=== PATIENT | male | born 1935 | race Caucasian/White ===

== ENCOUNTER 2019-02-28 12:28 | Emergency (ER) | payer MEDICARE, OTHER ==
[~2019-02-28 12:28] MED LIST: CHILDREN'S ASPI81 MG PO; COREG12.5 MG PO; FLOMAX0.4 MG PO; GLIMEPIRIDE2 MG PO; LIPITOR40 MG PO; NEXIUM40 MG PO; PLAVIX75 MG PO; SYNTHROID75 MCG PO; ZOLOFT100 MG PO
[2019-02-28 12:29] VITALS: BP 174/85; Ht 180.3 cm
[2019-02-28] MEDS ORDERED: ASPIRIN81 MG (12:34)
[2019-02-28] MEDS ORDERED: CHLORTHALIDONE50 MG PO (12:35)
[2019-02-28] MEDS ORDERED: PLAVIX75 MG PO (12:35)
[2019-02-28] MEDS ORDERED: DONEPEZIL HCL10 MG PO (12:36)
[2019-02-28] MEDS ORDERED: FERROUS SULFAT325 MG PO (12:36)
[2019-02-28] MEDS ORDERED: BENTYL10 MG PO (12:36)
[2019-02-28] MEDS ORDERED: FLOVENT DISKU250 MCG INH (12:37)
[2019-02-28] MEDS ORDERED: GLIMEPIRIDE4 MG PO ×2 (12:37)
[2019-02-28] MEDS ORDERED: COMBIVENT RESPIM4 GM (12:37)
[2019-02-28] MEDS ORDERED: GAS-X125 M1 PO (12:38)
[2019-02-28] MEDS ORDERED: NAMENDA10 MG PO (12:38)
[2019-02-28] MEDS ORDERED: JANUVIA50 MG PO (12:39)
[2019-02-28 13:30] LABS: BASOPHILS 0.3 % (0-2); EOSINOPHILS 2.3 % (0-7); HEMATOCRIT 33.8 % (42.0-54.0); HEMOGLOBIN 10.9 g/dL (13.5-17.5); IMMATURE GRANULOCYTES 0.9 % (0-5); MCHC 32.2 g/dL (31.0-37.0); MCV 99.1 fL (80.0-100.0); MEAN PLATELET VOLUME 9.6 fL (7.4-10.4); MONOCYTES 5.8 % (2-11); NEUTROPHILS 73.7 % (40-80); PLATELET COUNT 179 10x3/uL (130-400); RBC 3.41 10x6/uL (4.20-6.10); RDW 14.6 % (11.5-14.5); WBC 11.6 10x3/uL (4.8-10.8)
[2019-02-28 13:40] LABS: ALBUMIN 3.1 g/dL (3.4-5.0); ALKALINE PHOSPHATASE 94 U/L (46-116); ALT (SGPT) 32 U/L (10-68); BILIRUBIN - TOTAL 0.61 mg/dL (0.2-1.3); CALC OSMOLALITY 290 mosm/kg (275-300); CALCIUM 9.3 mg/dL (8.5-10.1); CARBON DIOXIDE 32.8 mmol/L (21.0-32.0); CHLORIDE - SERUM 103 mmol/L (98-107); CREATININE - SERUM 1.7 mg/dL (0.6-1.3); GLUCOSE 138 mg/dL (74-106); POTASSIUM - SERUM 3.1 mmol/L (3.5-5.1); PROTEIN - SERUM 7.5 g/dL (6.4-8.2); SODIUM 140 mmol/L (136-145); UREA NITROGEN 40 mg/dL (7-18); eGFR NON AFRICAN AMERICAN 41 mL/min (90-120)
[2019-02-28 13:48] LABS: MAGNESIUM - SERUM 1.7 mg/dL (1.8-2.4); PRO BNP 928 pg/mL (0-450); THYROID STIMULATING HORMONE 2.71 uIU/mL (0.36-3.74); TROPONIN-I < 0.017 ng/mL (0.000-0.060)
--- NOTE | 2019-02-28 14:01 | MORECARE ---
CASE MANAGEMENT DISCHARGE SUMMARY PATIENT: FABIÁN JAMES UNIT: [id number] ADM DATE: AGE: 83 : 35 SEX: M ROOM/BED: AUTHOR: YONAS MAHAJAN PHYSICIAN: REFERRING PHYSICIAN: KEISHA BUCKLEY MD DATE OF SERVICE: 02/28/19 Discharge Plan Patient Name: FABIÁN JAMES Facility: [facility]:[place] : 1935 Planned Disposition: Home or Self Care Anticipated Discharge Date: Discharge Date: Expected LOS: 0 Initial Reviewer: [email or web address] Initial Review Date: 02/28/2019 Generated: 02/28/19 3:00 pm Patient Name: FABIÁN JAMES Page [id number] at 1401 All edits/amendments must be made on the electronic document DICTATION DATE: 02/28/19 1400 SCALE BALANCER: FILIBERTO 02/28/19 1400 RPT#: [id number] DC DATE: STATUS: REG ER [facility] [address] [place] [address] END OF REPORT
--- NOTE | 2019-02-28 15:06 | MORECARE ---
CASE MANAGEMENT DISCHARGE SUMMARY PATIENT: FABIÁN MANNING UNIT: [id number] ADM DATE: AGE: 83 : 35 SEX: M ROOM/BED: AUTHOR: KEYSHAWN,DOC PHYSICIAN: REFERRING PHYSICIAN: KEISHA BUCKLEY MD DATE OF SERVICE: 02/28/19 Discharge Plan Patient Name: FABIÁN MANNING Facility: [facility]:[place] : 1935 Planned Disposition: Home or Self Care Anticipated Discharge Date: Discharge Date: Expected LOS: 0 Initial Reviewer: [email or web address] Initial Review Date: 02/28/2019 Generated: 02/28/19 4:06 pm Comments DCP- Discharge Planning Updated by [email or web address]: Yu Sapp on 02/28/19 1:[address] CM met with patient, per MD request. Patient states he lives in an apartment, alone. States his , Jeanette Manning, #[phone], lives in a separate apartment, a few doors from him. Patient is alert, oriented and states he is upset due to " refused to let his hospital nursing assistant come into his apartment for his care." States "I waited on them to come, and pooped my pants and had to lay in it all night long. I was not made aware that they were not coming." Patient states he is able to ambulate with his hospital nursing assistant by his side. States his has POA. States his along with the police showed up at his apartment and he was sent to the hospital for unknown reasons. When questioned patient about going into rehab for physical therapy/OT, patient states he was already doing that at his home and would prefer to return there as his caregivers are in [place]. This was reported to ER MD. Patient's spouse at nurses desk, states she doses not have the money to pay a private caregiver (approx. $7,000 for the next 2 weeks). Spouse states she has called Dr. Johnston's office ([facility]), was told what to bring for paperwork and patient would be admitted to [facility]. States she has the money to private pay for a nursing facility, but the patient the has refused to go. Patient has been a client of [facility] in the past. Spouse states Rosanne Baires DC, [facility] would be her preference. Son, Seth Manning #[phone], is on his way here. Spouse states she cannot take patient home. She states she contacted [facility] last evening and was informed to call the police, which she did this morning. CM made spouse aware that a premium representative from [facility] will evaluate patient to see if patient meets requirements for admit. Also made her aware that the [facility] premium representative will speak with her. ER nurse Geraldine has contacted [facility] for evaluation. Family is in waiting awaiting decision. Yu Sapp RN, CM Last DP export: 02/28/19 1:00 p Patient Name: FABIÁN MANNING Page [phone] at 1506 All edits/amendments must be made on the electronic document DICTATION DATE: 02/28/19 150 OFFICE SUPPORT: FILIBERTO 02/28/19 1506 RPT#: [id number] DC DATE: STATUS: REG [facility] [address] [place] [address] END OF REPORT
[2019-02-28 16:27] LABS: APPEARANCE CLEAR (CLEAR); BILIRUBIN NEGATIVE (NEGATIVE); COLOR YELLOW (YELLOW); GLUCOSE NEGATIVE (NEGATIVE); KETONE NEGATIVE (NEGATIVE); NITRITE NEGATIVE (NEGATIVE); PROTEIN NEGATIVE (NEGATIVE); SPECIFIC GRAVITY 1.015 (1.005-1.020); UROBILINOGEN NORMAL (NORMAL)
[2019-02-28 16:31] LABS: UDS - AMPHET NEGATIVE QUAL (NEGATIVE); UDS - BARB NEGATIVE QUAL (NEGATIVE); UDS - BENZO NEGATIVE QUAL (NEGATIVE); UDS - COCAINE NEGATIVE QUAL (NEGATIVE); UDS - OPIATE NEGATIVE QUAL (NEGATIVE); UDS - PCP NEGATIVE QUAL (NEGATIVE); UDS - THC NEGATIVE QUAL (NEGATIVE)
[2019-02-28] MEDS ORDERED: PROTONIX20 MG (17:00)
== END 2019-02-28 16:40 ==
LOC: D.ER 12:28
PROVIDERS: Family Medicine
DX: M25.552 Pain in left hip (principal); R45.1 Restlessness and agitation; R53.1 Weakness; E87.6 Hypokalemia; N28.9 Disorder of kidney and ureter, unspecified

== ENCOUNTER 2019-02-28 16:07 | Inpatient (IN) | payer MEDICARE, OTHER ==
[~2019-02-28] VITALS: Ht 175.3 cm; Wt 93.9 kg
--- NOTE | ~2019-02-28 | DS ---
PATIENT:FABIÁN JAMES :35 MEDICAL RECORD: [id number] DISCHARGE SUMMARY ADMISSION DATE: 02/28/19 DISCHARGE DATE: 03/08/19 IDENTIFYING DATA: The patient is 83 years old and he was admitted to the hospital on a voluntary basis. The patient apparently has a history of alcoholism and had fallen a few days ago. He was found in the floor surrounded by urine and feces. There are also empty wine bottles around him. He was quite disheveled and the home was disheveled. He was brought to the Emergency Room where he was very angry. He has a known and established diagnosis of dementia. He believes that his and son are plotting against him to get his house away from him, even though there is no evidence of this. He apparently used to be a very heavy drinker, even though it did not really interfere with his social or occupational functioning, but now he says he just drinks very casually perhaps a glass or two of wine with a meal. He apparently broke his hip recently, I suspect that was probably also at least in part related to his alcohol use. HOSPITAL COURSE: The patient was admitted to the hospital and fully evaluated from both a medical, psychological, and social standpoint. He was given routine prophylaxis for alcohol withdrawal but did not show any. He was initially quite angry and disruptive. He showed improvement in his cognition and mood state through the course of the hospitalization as he was treated with both mood-stabilizing and memory-enhancing medications. He was subsequently transitioned to a [facility] for rehabilitative services. He was accepting of this and did not represent a direct risk to others. DISCHARGE DIAGNOSES: AXIS I: 1. Senile dementia of the Alzheimer's type with behavioral disturbances. 2. Alcohol abuse. AXIS II: None. AXIS III: Hypertension, hyperlipidemia, diabetes, cardiac arrhythmia, gastroesophageal reflux disease. AXIS IV: Moderate. AXIS V: Global Assessment Of Functioning is 45. PLAN: At the time of discharge, the patient was in good behavioral control. He still had cognitive improvement but had improved. He will have rehabilitative services and as to his long-term placement that is yet to be determined, which is the least restrictive. I think that his prognosis will be dramatically improved if he abstains from alcohol use. He says he intends to do so, but I think he has pretty limited insight about his use of alcohol. Followup will be with his primary care physician. TRANSINT:[id number] Voice Confirmation ID: [id number] DOCUMENT ID: [id number] KRUNAL ROQUE MD CC: [id number] DICTATION DATE: 03/09/191519 GUT SORTER: 03/10/19 0551 DIS IN 03/08/19 [facility] [address] [place] [address]
[~2019-02-28 16:07] MED LIST changes: +ASPIRIN81 MG; +BENTYL10 MG PO; +CHLORTHALIDONE50 MG PO; +COMBIVENT RESPIM4 GM; +DONEPEZIL HCL10 MG PO; +FERROUS SULFAT325 MG PO; +FLOVENT DISKU250 MCG INH; +GAS-X125 M1 PO; +GLIMEPIRIDE4 MG PO; +JANUVIA50 MG PO; +NAMENDA10 MG PO
--- NOTE | 2019-02-28 16:45 | NUR ---
PT ADMITTED TO SENIOR FOR AGGRESSION WITH FAMILY AND INCREASED CONFUSION. PT IS VERY ANXIOUS ON ADMIT. STATING HE WANTS TO GO HOME "YALL ARE HOLDING ME AGAINST MY WILL, I GOING TO AMA MY , SON AND EVERYONE INVOLVED." PT CAME FROM HOME WHERE HIM LIVES ALONE. LIVES THREE HOUSES DOWN DUE TO INCREASED AGGRESSION PER AND SON. PT IS FULL CODE PER POLLO JAMES POA-. AMCEY JAMES GAVE VERBAL CONSENT FOR TREATMENT. TREATMENT DISCUSSED WITH , SON, AND DAUGHTER IN LAW. PT CODEWORD IS FRISCO. FAMILY IS LOOKING FOR SENIOR CARE PLACEMENT FOR SAFETY AND THERAPY.
[2019-02-28] MEDS ORDERED: PROTONIX20 MG (17:00)
--- NOTE | 2019-02-28 17:04 | NUR ---
PT VERY ANXIOUS YELLING AT STAFF " I AM GOING TO AMA MY , SON AND EVERYONE INVOLVED, IM BEING HELD AGAINST MY WILL." UNABLE TO REDIRECT PT AT THIS TIME. PRN ATIVAN 0.5MG GIVEN PER PRN ORDER. WILL CONTINUE TO MONITOR Q 15 MINUTES FOR SAFETY.
--- NOTE | 2019-02-28 18:00 | NUR ---
PT IS SITTING IN W/C IN DAYROOM. PRN MED EFFECTIVE AT THIS TIME. WILL CONTINUE TO MONITOR Q 15 MINUTES FOR SAFETY. WILL CPOC.
[2019-02-28 20:43] VITALS: BP 153/65
--- NOTE | 2019-02-28 21:50 | NUR ---
B) Patient is awake and alert, he is in the bed. He does ask who are you? he does not see well. He did sit up and take his meds. He is pleasant he has not shown any aggression tonight. He is confused, he does not know where he is located. I) Provide prescribed. Redirect to appropriate behavior. R) The patient is compliant with meds and unit milieu. P) Continue POC.
[2019-03-01 04:49] VITALS: BP 153/65; BMI 30.7
[2019-03-01 07:43] LABS: BASOPHILS 0.2 % (0-2); EOSINOPHILS 2.4 % (0-7); HEMATOCRIT 35.3 % (42.0-54.0); HEMOGLOBIN 11.2 g/dL (13.5-17.5); IMMATURE GRANULOCYTES 0.6 % (0-5); LYMPHOCYTES 17.4 % (15-50); MCH 31.6 pg (26.0-34.0); MCHC 31.7 g/dL (31.0-37.0); MCV 99.7 fL (80.0-100.0); MEAN PLATELET VOLUME 9.3 fL (7.4-10.4); MONOCYTES 6.3 % (2-11); NEUTROPHILS 73.1 % (40-80); PLATELET COUNT 161 10x3/uL (130-400); RBC 3.54 10x6/uL (4.20-6.10); RDW 14.6 % (11.5-14.5); WBC 12.8 10x3/uL (4.8-10.8)
[2019-03-01 08:17] LABS: ALBUMIN 3.1 g/dL (3.4-5.0); ANION GAP 7.1 mmol/L (8-16); BILIRUBIN - TOTAL 0.63 mg/dL (0.2-1.3); CALCIUM 9.1 mg/dL (8.5-10.1); CARBON DIOXIDE 33.4 mmol/L (21.0-32.0); CHOL - HDL RATIO 4.3 ratio (2.3-4.9); CREATININE - SERUM 1.5 mg/dL (0.6-1.3); LDL-HDL RATIO 2.4 ratio (1.5-3.5); POTASSIUM - SERUM 3.5 mmol/L (3.5-5.1); PROTEIN - SERUM 7.4 g/dL (6.4-8.2); THYROID STIMULATING HORMONE 3.15 uIU/mL (0.36-3.74)
[2019-03-01 08:25] VITALS: BP 123/57
[2019-03-01 10:01] VITALS: BMI 30.8
--- NOTE | 2019-03-01 10:10 | NUR ---
PATIENT IS ALERT AND AWAKE, WITH CONFUSION NOTED. CALM AND COOPERATIVE WITH CARE AND ASSESSMENT. PLEASANT AND SOCIALIZES WITH STAFF AND PEERS. COMPLIANT WITH MEDICATIONS. REDIRECT TO APPROPRIATE BEHAVIORS. NO AGGRESSION NOTED THIS AM. WILL CONTINUE POC.
[2019-03-01 10:52] VITALS: Ht 175.3 cm; Wt 93.9 kg
[2019-03-01 11:14] LABS: FOLATE (FOLIC ACID) - SERUM 12.6 ng/mL (>3.0)
[2019-03-01 20:00] VITALS: BP 121/50
--- NOTE | 2019-03-01 20:56 | NUR ---
RECEIVED IN PATIENT ROOM. GETTING READY FOR BED. CALM AND COOPERATIVE WITH CARE AND ASSESSMENT. NO AGGRESSIVE BEHAVIORS. REDIRECT AND REORIENT NEEDED. RESTING IN BED WITH EYES CLOSED AT THIS TIME. CONTINUE PLAN OF CARE.
--- NOTE | 2019-03-02 09:27 | NUR ---
RECEIVED PATIENT IN DINING ROOM FOR B'FAST, ALERT, CALM, COOPERATIVE. MEDS ADMIN PER ORDERS WITH COMPLETE MED COMPLIANCE NOTED. COOPERATIVE WITH GROUP AND STAFF REQUESTS. NO AGGRESSION NOTED. CONT POC DIRECTED.
[2019-03-02 12:51] VITALS: BP 133/83
--- NOTE | 2019-03-02 14:19 | PSY ---
PATIENT NAME:FABIÁN JAMES MEDICAL RECORD: [id number] : 35 LOCATION:[facility]8 ADMISSION DATE: 02/28/19 ACCOUNT: [id number] PSYCHIATRIC EVALUATION DATE OF EVALUATION: 03/01/19 PSYCHIATRIC EVALUATION IDENTIFYING DATA: The patient is 83 years old and he is admitted to the hospital on a voluntary basis. CHIEF COMPLAINT: Confusion and aggression. HISTORY OF PRESENT ILLNESS: The patient apparently has a history of alcoholism and he fell a few days ago and was found on the floor in urine and feces. There were broken wine bottles all over the floor and pill bottles on the floor along with general disheveled appearance of the home. He was brought to the Emergency Room. He was very angry. He does have a history of dementia and he is admitted for evaluation of this. He says that his and son are plotting against him to get his house away from him and that none of this is true. He says he used to be a heavy drinker, but now he will just go out to a restaurant and maybe have 1 or 2 glasses of wine with a meal. He says he has had some hip problems and that he does not ambulate very well. He denies that he would seek to harm himself or others. He denies he is having any cognitive issues. PAST MEDICAL HISTORY: Significant for hypertension, gastroesophageal reflux disease, cardiac arrhythmia, benign prostatic hypertrophy, diabetes, and hyperlipidemia. PAST PSYCHIATRIC HISTORY: Significant for an established diagnosis of dementia. I do not have the details on when or how that was diagnosed. FAMILY HISTORY: Unremarkable. ALLERGIES: No known drug allergies. CURRENT MEDICATIONS: Include Januvia, Protonix, Hygroton, Zoloft, Coreg, Plavix, Flomax, Aricept, Amaryl, Namenda, aspirin, Lipitor, and Mylanta. SOCIAL HISTORY: The patient is from [place]. 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 He denies having had any problems with alcohol that caused trouble in his work or home life. He tells me he is from his , who lives down the street from him and that the son and the are wanting to get the house from him. He has a total of 5 children. He has had no legal entanglements. MENTAL STATUS EXAMINATION: The patient is actually fully oriented, although he corrects himself a couple of times and made a slight mistake about the date, but he was correct in identifying the date. He does have impairment of his short-term memory. His long-term memory seems to be intact. His mood is euthymic. His affect is appropriate. Thought processes are generally goal directed. Memory, concentration, and abstraction abilities are mildly impaired. He has no thoughts of harming himself or others. No active psychotic symptoms. ASSETS: Supportive family members. LIABILITIES: Limited insight. DIAGNOSTIC IMPRESSION: AXIS I: Senile dementia of the Alzheimer's type with behavioral disturbances. AXIS II: None. AXIS III: Hypertension, hyperlipidemia, diabetes, cardiac arrhythmia, gastroesophageal reflux disease. AXIS IV: Moderate. AXIS V: Global assessment of functioning is 40. PLAN: At this time, the patient is admitted to the hospital secondary to some agitation and aggression associated with dementia and possibly with a substance abuse issue. He will be monitored for clinical changes associated with his condition. He will be given folate and thiamine for possible alcohol withdrawal and he will be monitored carefully for withdrawal. TRANSINT:[id number] Voice Confirmation ID: [id number] DOCUMENT ID: [id number] KRUNAL ROQUE MD at 1419 CC: [id number] DICTATION DATE: 03/01/19 1436 SWITCH CREW SUPERVISOR: 03/01/19 1508 [facility] [address] [place] [address]
--- NOTE | 2019-03-02 18:28 | NUR ---
DAUGHTERS PHONED TO TALK TO PATIENT DURING PHONE CALL TIME. PATIENT ENJOYED THE CONVERSATIONS.
[2019-03-02 20:36] VITALS: BP 114/50
--- NOTE | 2019-03-03 03:41 | NUR ---
B) Patient is alert and oriented to person and place, calm and cooperative this shift, I) Administered scheduled medications as ordered, monitored for safety R) Mediation compliant, follows instructions, P) Continue plan of care.
--- NOTE | 2019-03-03 05:15 | PN ---
PATIENT:FABIÁN JAMES MEDICAL RECORD: [id number] LOCATION:[facility]112 ADMISSION DATE: 02/28/19 PROGRESS NOTE DATE OF SERVICE: 03/02/2019 SUBJECTIVE: The patient's case was discussed with staff. He has no new complaint. OBJECTIVE: The patient is showing no evidence of alcohol withdrawal. He has not been aggressive today. His family wants him to be placed in a skilled nursing. He clearly is demented and unfortunately he has some preservation of insight still that makes things more difficult. He insists he has not been drinking, that contradicts the family. I must say he has not shown evidence of alcohol withdrawal at this point and that is obviously a good thing and supports what he is saying. TRANSINT:[id number] Voice Confirmation ID: [id number] DOCUMENT ID: [id number] KRUNAL ROQUE MD at 0515 CC: [id number] DICTATION DATE: 03/02/19 165 BIN WORKER: 03/02/19 1928 ADM IN [facility] [address] [place] [address]
--- NOTE | 2019-03-03 07:30 | NUR ---
B) The patient is sleeping in his bed, but he awakens easily. He is pleasant. He has not shown any aggression this am. He is calm. He does his ADL's. He ambulates independently. I) Provide prescribed meds. Encourage group meds. R) The patient is compliant with unit milieu. P) Continue POC.
[2019-03-03 09:02] VITALS: BP 129/45
--- NOTE | 2019-03-03 16:25 | NUR ---
Patient went to the bathroom and he requested assistance. He said he felt humiliated to have to ask, but he has bm stuck. Did feel in his rectum and he does have a few small hard ball like bm, did remove about five, will give him some prune juice with a lemon [place] drink.
[2019-03-03 19:24] VITALS: BP 102/60
--- NOTE | 2019-03-04 00:31 | NUR ---
PATIENT IS PLEASANT AND COOPERATIVE, HOWEVER EASILY AGITATED, COMPLIANT WITH MEDS, ABLE TO VOICE CONCERNS, WILL FOLLOW POC
[2019-03-04 09:09] VITALS: BP 196/94
--- NOTE | 2019-03-04 10:07 | NUR ---
The patient says "I would like to see the Dr. today, I have tried to have a BM and I just can't seem to go, and I have gas." Did provide the patient a dose of Milk of Mag. see
--- NOTE | 2019-03-04 10:26 | NUR ---
B) The patient is confused. He has poor insight into situation. He said "I need to see the Dr., I have not seen a Dr. in the two days I have been here." Attempted to reorient him to let him know that Dr. Ortiz saw him this am. He started to argue, but redirected him and explained that the psychiatrist will see him today. He said "Well, I'd like to see him, please let him know I want to see him." I) Provide prescribed meds. Redirect as needed. R) The patient is compliant with meds. He does self propel in a w/c, but he moves slowly. He can stand and transfer with assistance. P) Continue POC.
--- NOTE | 2019-03-04 11:45 | NUR ---
The patient requested assistance to the bathroom, he says "I think I may have gas." He did use the toilet and had a BM, he says he feels better now.
--- NOTE | 2019-03-04 13:00 | NUR ---
The patient is pleasant and articulate, but unfortunately he does not comprehend that he has memory deficits. He tries to argue, but then he will think about it and state "Oh, yes, i see what you are saying."
--- NOTE | 2019-03-04 14:27 | NUR ---
The patient did get a shave and he now wheels himself to the nurse and says "I guess I will not see the psychiatrist before my family comes. Text Dr. Edward and he said "No, he will not be here until this evening d/t the second day of a conference he is attending." The patient is beginning to argue and say "You tell me I have memory problems and I do not, [place] fine." Did have to walk away and let the patient know that I would not argue. He was polite and did not escalate. Will allow the patient to self calm.
--- NOTE | 2019-03-04 16:16 | NUR ---
The patient's family came to visit and as soon as they walked through the door he said to his family. "I need to speak to you alone." Explained that he was not able to speak to anyone alone d/t the rules. He said "Well, I want to say some things that I do not want you to hear." Did assist other families coming through the door. Did hear him begin to get louder and louder. Motioned over to the spouse and asked her if I may speak to her. She let me know about his mood swings and how his PCP did tell him that "Everyone over 70 takes memory medication." His spouse also stated when he was younger he was not like that at all, it has only been the last one and one half years that he has changed. Asked her if she would like me to intervene and ask them to leave as he is getting agitated. She said "it is up to you." He did get calmer and did not yell anymore so they did stay.
--- NOTE | 2019-03-04 18:45 | PN ---
PATIENT:FABIÁN JAMES MEDICAL RECORD: [id number] LOCATION:[facility]ocanegra112 ADMISSION DATE: 02/28/19 PROGRESS NOTE DATE OF SERVICE: 03/03/2019 SUBJECTIVE: The patient's case was discussed with staff. He has no new complaint. OBJECTIVE: The Trilafon appears to have helped him rest better. I do not know that his thought processes are any more organized. He is still angry about being here and feels that his family is somehow treating him unfairly. He has not shown any evidence of alcohol withdrawal. ASSESSMENT: Senile dementia of the Alzheimer's type with behavioral disturbances. PLAN: Current medicines and therapies have been reviewed and will be maintained. Long-term prognosis is guarded. TRANSINT:[id number] Voice Confirmation ID: [id number] DOCUMENT ID: [id number] KRUNAL ROQUE MD at 1845 CC: [id number] DICTATION DATE: 03/03/19 0533 BELLHOP SERVICE CAPTAIN: 03/03/19 0859 ADM IN [facility] [address] [place] [address]
[2019-03-04 19:27] VITALS: BP 140/80
--- NOTE | 2019-03-04 20:33 | NUR ---
PATIENT HAS A POOR MEMORY, AGITATED VERY EASILY, COMPLIANT WITH MEDS, NO ADVERSE REACTION NOTED. WILL FOLLOW POC
[2019-03-05 08:13] VITALS: BP 122/50
--- NOTE | 2019-03-05 09:51 | PN ---
PATIENT:FABIÁN JAMES MEDICAL RECORD: [id number] LOCATION:[facility]oc[facility]112 ADMISSION DATE: 02/28/19 PROGRESS NOTE DATE OF SERVICE: 03/04/2019 SUBJECTIVE: The patient's case was discussed with staff. He has no new complaint. OBJECTIVE: The patient has shown no evidence of alcohol withdrawal. He is participating in treatment and tolerating his medicines reasonably well. He is clearly impaired. He has almost no recollection of the things we talked about from day to day and consistent with the disease. He keeps repeating the same information about how he got here and how he feels he is being treated unjustly and unfairly and arbitrarily by his family. ASSESSMENT: Senile dementia of the Alzheimer's type with behavioral disturbances. PLAN: The patient has not been aggressive. He has actually shown some improvement in his cognition. He is certainly not competent and he certainly does need a high level of supervision and it is my understanding that the family is wanting him placed in a assisted. At this point, until drug abuse social worker can provide more information, I do not think there is anything to be done with his medicines. He probably can be transitioned out of the hospital soon, unless he has a setback with his behavior. I anticipate that is likely to happen since I do not believe he has been told he is going to have to go to the assisted for a superintendent container terminal stay. He keeps talking about going back to rehab, but that is not my understanding of the situation. Today is Wednesday, I should have a better feel or update on this situation by Wednesday. TRANSINT:[id number] Voice Confirmation ID: [id number] DOCUMENT ID: [id number] KRUNAL ROQUE MD at 0951 CC: [id number] DICTATION DATE: 03/04/191900 MORTARMAN: 03/05/19 0449 ADM IN [facility] [address] [place] [address]
--- NOTE | 2019-03-05 10:31 | NUR ---
B) The patient is pleasant this am, he has poor insight into his situation. The patient is calm and he is self propelling in his w/c. I) Provide prescribed meds and redirect as needed. R) The patient is compliant with meds and unit milieu. P) Continue POC.
--- NOTE | 2019-03-05 20:34 | NUR ---
PATIENT IS CONFUSED, EASILY AGITATED, DEMANDING AT TIMES, COMPLIANT WITH MEDS, WILL FOLLOW POC
[2019-03-05 21:29] VITALS: BP 98/40
[2019-03-06 07:00] VITALS: BP 128/55
--- NOTE | 2019-03-06 11:10 | NUR ---
PATIENT IS AWAKE AND ALERT, WITH CONFUSION NOTED. HE IS PARTICIPATING IN GROUP THERAPY. CALM AND COOPERATIVE WITH CARE AND ASSESSMENT. MEDICATION COMPLIANT. REDIRECT AND REORIENT NEEDED. WILL CONTINUE POC.
--- NOTE | 2019-03-06 15:33 | PN ---
PATIENT:FABIÁN JAMES MEDICAL RECORD: [id number] LOCATION:[facility]oc[facility]112 ADMISSION DATE: 02/28/19 PROGRESS NOTE DATE OF SERVICE: 03/05/2019 SUBJECTIVE: The patient's case was discussed with staff. He has no new complaint. OBJECTIVE: The patient denies intent to harm himself or others. He tolerates his medicines well. ASSESSMENT: Senile dementia of the Alzheimer's type with behavioral disturbances. PLAN: The patient's family is wanting him placed in a local [facility]. I believe the decision is between [facility] or [facility]. At this point, neither of them have accepted him, but I would anticipate that if this level of improvement continues he can reasonably be transitioned to one of those facilities in the next few days. TRANSINT:[id number] Voice Confirmation ID: [id number] DOCUMENT ID: [id number] KRUNAL ROQUE MD at 1533 CC: [id number] DICTATION DATE: 03/05/19 1029 HYDRAULIC ELEVATOR CONSTRUCTOR: 03/05/19 1732 ADM IN [facility] [address] [place] [address]
[2019-03-06 20:12] VITALS: BP 119/49
--- NOTE | 2019-03-07 04:13 | NUR ---
RECEIVED IN DAYROOM. RESTING IN RECLINER WITH EYES OPEN. CALM AND COOPEATIVE WITH CARE AND ASSESSMENT. NO AGGRESSIVE BEHAVIORS. REDIRECT AND REORIENT NEEDED. RESTING IN BED WITH EYES CLOSED AT THIS TIME. CONTINUE PLAN OF CARE.
[2019-03-07 08:24] VITALS: BP 118/51
--- NOTE | 2019-03-07 09:00 | NUR ---
RECEIVED PATIENT IN DINING ROOM FOR B'FAST, ALERT, CALM, COOPERATIVE, NO AGGRESSION NOTED, PLEASANT. ADMIN MEDS PER ORDERS WITH COMPLETE MED COMPLIANCE NOTED. COOPERATIVE WITH GROUP AND STAFF REQUESTS. CONT POC INCLUDING MEDS AND GROUP THERAPY DIRECTED.
[2019-03-07] MEDS ORDERED: Aricept PO (13:05)
[2019-03-07] MEDS ORDERED: NAPROXEN250 MG PO (13:06)
[2019-03-07] MEDS ORDERED: PERPHENAZINE2 MG PO (13:06)
[2019-03-07] MEDS ORDERED: PROTONIX40 MG PO (13:06)
--- NOTE | 2019-03-07 13:08 | PN ---
PATIENT:FABIÁN JAMES MEDICAL RECORD: [id number] LOCATION:[facility]oc[facility]112 ADMISSION DATE: 02/28/19 PROGRESS NOTE DATE OF SERVICE: 03/06/2019 SUBJECTIVE: The patient's case was discussed with staff. He has no new complaint. OBJECTIVE: The patient is in good behavioral control. He has limited insight about his condition. He does tolerate his medicines well. ASSESSMENT: Senile dementia of the Alzheimer's type with behavioral disturbances. PLAN: The patient seems to have significantly improved. He will be maintained on current medicines, which I have reviewed. He is going to be [facility]ed to the [facility] soon. TRANSINT:[id number] Voice Confirmation ID: [id number] DOCUMENT ID: [id number] KRUNAL ROQUE MD at 1308 CC: [id number] DICTATION DATE: 03/06/19 1628 CLERICAL WAREHOUSEMAN: 03/06/19 1855 ADM IN [facility] [address] [place] [address]
[2019-03-07 20:09] VITALS: BP 139/53
--- NOTE | 2019-03-08 05:08 | NUR ---
RECEIVED IN DAYROOM. SOCIALIZING WITH STAFF AND PEERS. CALM AND COOPERATIVE WITH CARE AND ASSESSMENT. NO SIGNS OF AGGRESSION. REDIRECT AND REORIENT NEEDED. RESTING IN BED WITH EYES CLOSED AT THIS TIME. CONTINUE PLAN OF CARE.
[2019-03-08 09:07] VITALS: BP 117/72
--- NOTE | 2019-03-08 09:58 | NUR ---
Nutrition follow up Diabetic diet with 100% intake of meals BG 68 this morning-will recommend a bedtime snack each night-spoke with nursing 2BM yesterday RD following per protocol
--- NOTE | 2019-03-08 10:00 | NUR ---
RECEIVED PATIENT IN DINING ROOM FOR B'FAST, ALERT, CALM, COOPERATIVE, LOOKING FORWARD TO DISCHARGE THIS MORNING. MEDS ADMIN PER ORDERS WITH COMPLETE MED COMPLIANCE NOTED. COOPERATIVE WITH GROUP AND STAFF. DISCHARGE LATER THIS SHIFT TO [facility].
--- NOTE | 2019-03-08 10:37 | NUR ---
REPORT CALLED TO MICHAEL RAPP AT [facility]. PERSONAL BELONGINGS RETURNED TO PATIENT.
--- NOTE | 2019-03-08 11:05 | NUR ---
DISCHARGED FROM UNIT IN CARE OF [facility] STAFF, NO S/S DISTRESS, NO C/O PAIN, PLEASANT MOOD, QUITE COOPERATIVE.
--- NOTE | 2019-03-08 15:58 | PN ---
PATIENT:FABIÁN JAMES MEDICAL RECORD: [id number] LOCATION:[id number] ADMISSION DATE: 02/28/19 PROGRESS NOTE DATE OF SERVICE: 03/07/2019 SUBJECTIVE: The patient's case was discussed with staff. He has no new complaint. OBJECTIVE: The patient has been sleeping well and he is eating well. His mood is near euthymic. ASSESSMENT: Senile dementia of the Alzheimer's type with behavioral disturbances. PLAN: Supportive and educational interventions were made. Long-term prognosis is guarded. TRANSINT:[id number] Voice Confirmation ID: [id number] DOCUMENT ID: [id number] KRUNAL ROQUE MD at 1558 CC: [id number] DICTATION DATE: 03/07/19 1501 DIRECTOR STAGE: 03/07/19 1600 DIS IN 03/08/19 [facility] [address] [place] [address]
== END 2019-03-08 12:03 | DRG 57 ==
LOC: D.PSYCH 16:07
PROVIDERS: ADMIT Psychiatry & Neurology Psychiatry; ATTEND Psychiatry & Neurology Psychiatry
DX: G30.1 Alzheimer's disease with late onset (principal); F02.81 Dementia in other diseases classified elsewhere, unspecified severity, with behavioral disturbance; I10 Essential (primary) hypertension; E78.5 Hyperlipidemia, unspecified; E11.9 Type 2 diabetes mellitus without complications; K21.9 Gastro-esophageal reflux disease without esophagitis; F10.20 Alcohol dependence, uncomplicated; D64.9 Anemia, unspecified; N28.9 Disorder of kidney and ureter, unspecified; F32.9 Major depressive disorder, single episode, unspecified; N40.0 Benign prostatic hyperplasia without lower urinary tract symptoms; I25.10 Atherosclerotic heart disease of native coronary artery without angina pectoris; M16.11 Unilateral primary osteoarthritis, right hip